=== PATIENT | female | born 1985 | race Caucasian/White ===

== ENCOUNTER 2018-02-20 13:56 | Emergency (ER) | payer BC ==
[~2018-02-20] VITALS: Ht 175.3 cm; Wt 67.3 kg
[2018-02-20 14:11] VITALS: Ht 175.3 cm; Wt 67.3 kg
[2018-02-20] MEDS ORDERED: EFFEXOR XR150 MG PO (14:12)
[2018-02-20] MEDS ORDERED: TORADOL10 MG PO (15:27)
[2018-02-20 15:50] VITALS: BP 110/64
== END 2018-02-20 15:47 | disposition home or self-care (01) ==
LOC: D.ER 13:56
DX: S50.01XA Contusion of right elbow, initial encounter (principal); W22.8XXA Striking against or struck by other objects, initial encounter; Y93.89 Activity, other specified; Y92.89 Other specified places as the place of occurrence of the external cause